=== PATIENT | male | born 1950 | race African-American/Black ===

== ENCOUNTER 2021-08-22 10:24 | Inpatient (IN) | payer OTHER ==
[2021-08-22] VITALS (8 sets, daily range): BP systolic 117–149; BP diastolic 55–74
[~2021-08-22] VITALS: Ht 167.6 cm; Wt 74.0 kg
[2021-08-22 11:59] LABS: HEMOGLOBIN 10.3 g/dl (14.0-18.0); IMMATURE GRANULOCYTES 0.3 % (0.0-5.0); MEAN CELL VOLUME 60.5 fL CALC (80.0-100.0); MEAN CORPUSCULAR HGB 18.3 pG CALC (26.0-32.0); MEAN CORPUSCULAR HGB CONC 30.3 g/dL CAL (32.0-36.0); NEUT# 12.46 thou/uL (1.82-7.42); RED BLOOD COUNT 5.62 mill/uL (4.70-6.10); RED CELL DISTRI WIDTH 14.6 % (11.5-15.5)
[2021-08-22 12:19] LABS: ALBUMIN 3.2 g/dL (3.2-5.0); ALKALINE PHOSPHATASE 168 u/l (38-126); ANION GAP 12 (6-22 (CALC)); BILIRUBIN, TOTAL 1.5 mg/dL (0.0-1.4); BUN 10 mg/dL (8-23); BUN/CREATININE RATIO 15 (12-20 (CALC)); CARBON DIOXIDE 27 mmol/l (22-30); CHLORIDE 94 mmol/l (95-108); CREATININE 0.7 mg/dL (0.7-1.3); GFR > 60 ML/MIN (>=60 (CALC)); GFR FOR AFR.AMER. > 60 ML/MIN (>=60 (CALC)); POTASSIUM 3.4 mmol/l (3.5-5.1); SGOT/AST 65 u/l (19-48); SODIUM 130 mmol/l (137-146); TOTAL PROTEIN 6.1 g/dL (6.3-8.2)
[2021-08-22] MEDS ORDERED: AMLODIPINE BESY10 MG PO (13:37)
[2021-08-22] MEDS ORDERED: ATORVASTATIN CA40 MG PO (13:38)
[2021-08-22] MEDS ORDERED: ASPIRIN81 MG PO (13:38)
[2021-08-22] MEDS ORDERED: GLIPIZIDE ER5 MG PO (13:39)
[2021-08-22] MEDS ORDERED: CEFTRIAX/DEX1 GM IV (13:39)
[2021-08-22] MEDS ORDERED: LATANOPROST0.005 % OU (13:40)
[2021-08-22] MEDS ORDERED: METFORMIN HCL500 M2 PO (13:41)
[2021-08-22] MEDS ORDERED: MAGNESIUM OXID400 M2 (13:41)
[2021-08-22] MEDS ORDERED: METOPROLOL100 M1 PO (13:43)
[2021-08-22] MEDS ORDERED: MYCOPHENOLIC A360 MG (13:44)
[2021-08-22] MEDS ORDERED: NOVOLIN N100 UNIT (13:45)
[2021-08-22] MEDS ORDERED: PROGRAF1 MG PO (13:46)
[2021-08-22] MEDS ORDERED: PROTONIX20 M1 PO (13:46)
[2021-08-22] MEDS ORDERED: CELLCEPT500 MG PO (17:09)
[2021-08-22] MEDS ORDERED: PROGRAF1 M1 PO ×2 (17:09→17:15)
[2021-08-23 00:50] VITALS: BP 123/62
[2021-08-23 04:34] VITALS: BP 129/69
[2021-08-23 06:01] LABS: HEMATOCRIT 30.2 % (39.0-50.0); HEMOGLOBIN 9.2 g/dl (14.0-18.0); MEAN CORPUSCULAR HGB 18.6 pG CALC (26.0-32.0); MEAN CORPUSCULAR HGB CONC 30.5 g/dL CAL (32.0-36.0); RED BLOOD COUNT 4.95 mill/uL (4.70-6.10); RED CELL DISTRI WIDTH 14.5 % (11.5-15.5)
[2021-08-23 06:17] LABS: ANION GAP 11 (6-22 (CALC)); BUN 9 mg/dL (8-23); BUN/CREATININE RATIO 13 (12-20 (CALC)); CARBON DIOXIDE 24 mmol/l (22-30); CHLORIDE 100 mmol/l (95-108); CREATININE 0.7 mg/dL (0.7-1.3); GFR > 60 ML/MIN (>=60 (CALC)); GFR FOR AFR.AMER. > 60 ML/MIN (>=60 (CALC)); MAGNESIUM 1.3 mg/dL (1.6-2.3); POTASSIUM 3.5 mmol/l (3.5-5.1); SODIUM 131 mmol/l (137-146)
[2021-08-23 08:05] VITALS: BP 135/67
[2021-08-23 16:10] VITALS: BP 118/57
[2021-08-23 19:00] VITALS: BP 119/64
[2021-08-24 04:00] VITALS: BP 131/68
[2021-08-24 05:42] LABS: HEMATOCRIT 28.6 % (39.0-50.0); HEMOGLOBIN 8.6 g/dl (14.0-18.0); MEAN CELL VOLUME 61.2 fL CALC (80.0-100.0); MEAN CORPUSCULAR HGB 18.4 pG CALC (26.0-32.0); MEAN CORPUSCULAR HGB CONC 30.1 g/dL CAL (32.0-36.0); RED BLOOD COUNT 4.67 mill/uL (4.70-6.10); RED CELL DISTRI WIDTH 14.5 % (11.5-15.5)
[2021-08-24 05:53] LABS: ANION GAP 9 (6-22 (CALC)); BUN 10 mg/dL (8-23); BUN/CREATININE RATIO 16 (12-20 (CALC)); CARBON DIOXIDE 25 mmol/l (22-30); CHLORIDE 105 mmol/l (95-108); CREATININE 0.6 mg/dL (0.7-1.3); GFR > 60 ML/MIN (>=60 (CALC)); GFR FOR AFR.AMER. > 60 ML/MIN (>=60 (CALC)); MAGNESIUM 1.6 mg/dL (1.6-2.3); POTASSIUM 3.8 mmol/l (3.5-5.1); SODIUM 136 mmol/l (137-146)
[2021-08-24 08:54] VITALS: BP 144/77
[2021-08-24 11:00] VITALS: BP 131/71
[2021-08-24 16:00] VITALS: BP 118/60
[2021-08-24 16:28] VITALS: BP 131/71
[2021-08-24 19:00] VITALS: BP 142/69
[2021-08-25] VITALS (7 sets, daily range): BP systolic 138–147; BP diastolic 68–82
[2021-08-25 06:05] LABS: HEMATOCRIT 28.5 % (39.0-50.0); HEMOGLOBIN 8.8 g/dl (14.0-18.0); MEAN CELL VOLUME 60.9 fL CALC (80.0-100.0); MEAN CORPUSCULAR HGB 18.8 pG CALC (26.0-32.0); MEAN CORPUSCULAR HGB CONC 30.9 g/dL CAL (32.0-36.0); RED BLOOD COUNT 4.68 mill/uL (4.70-6.10); RED CELL DISTRI WIDTH 14.7 % (11.5-15.5)
[2021-08-25 06:17] LABS: ANION GAP 10 (6-22 (CALC)); BUN 7 mg/dL (8-23); BUN/CREATININE RATIO 12 (12-20 (CALC)); CARBON DIOXIDE 25 mmol/l (22-30); CHLORIDE 107 mmol/l (95-108); CREATININE 0.6 mg/dL (0.7-1.3); GFR > 60 ML/MIN (>=60 (CALC)); GFR FOR AFR.AMER. > 60 ML/MIN (>=60 (CALC)); POTASSIUM 3.8 mmol/l (3.5-5.1); SODIUM 138 mmol/l (137-146)
[2021-08-26] VITALS: BP 148/79
[2021-08-26 04:00] VITALS: BP 145/79
[2021-08-26 06:02] LABS: HEMATOCRIT 29.9 % (39.0-50.0); HEMOGLOBIN 9.1 g/dl (14.0-18.0); MEAN CELL VOLUME 60.9 fL CALC (80.0-100.0); MEAN CORPUSCULAR HGB 18.5 pG CALC (26.0-32.0); MEAN CORPUSCULAR HGB CONC 30.4 g/dL CAL (32.0-36.0); RED BLOOD COUNT 4.91 mill/uL (4.70-6.10)
[2021-08-26 06:20] LABS: ANION GAP 9 (6-22 (CALC)); BUN 9 mg/dL (8-23); BUN/CREATININE RATIO 16 (12-20 (CALC)); CARBON DIOXIDE 26 mmol/l (22-30); CHLORIDE 105 mmol/l (95-108); CREATININE 0.6 mg/dL (0.7-1.3); GFR > 60 ML/MIN (>=60 (CALC)); GFR FOR AFR.AMER. > 60 ML/MIN (>=60 (CALC)); MAGNESIUM 1.5 mg/dL (1.6-2.3); POTASSIUM 4.2 mmol/l (3.5-5.1); SODIUM 136 mmol/l (137-146)
[2021-08-26 08:00] VITALS: BP 146/78
[2021-08-26 12:14] VITALS: BP 127/64
[2021-08-26 17:35] VITALS: BP 134/66
[2021-08-26 19:05] VITALS: BP 135/69
[2021-08-27] VITALS: BP 118/57
[2021-08-27 04:13] VITALS: BP 150/77
[2021-08-27 05:29] LABS: HEMATOCRIT 28.6 % (39.0-50.0); HEMOGLOBIN 8.7 g/dl (14.0-18.0); MEAN CELL VOLUME 60.7 fL CALC (80.0-100.0); MEAN CORPUSCULAR HGB 18.5 pG CALC (26.0-32.0); MEAN CORPUSCULAR HGB CONC 30.4 g/dL CAL (32.0-36.0); RED BLOOD COUNT 4.71 mill/uL (4.70-6.10)
[2021-08-27 05:36] LABS: ANION GAP 10 (6-22 (CALC)); BUN 13 mg/dL (8-23); BUN/CREATININE RATIO 18 (12-20 (CALC)); CARBON DIOXIDE 24 mmol/l (22-30); CHLORIDE 107 mmol/l (95-108); CREATININE 0.7 mg/dL (0.7-1.3); GFR > 60 ML/MIN (>=60 (CALC)); GFR FOR AFR.AMER. > 60 ML/MIN (>=60 (CALC)); MAGNESIUM 1.4 mg/dL (1.6-2.3); POTASSIUM 4.3 mmol/l (3.5-5.1); SODIUM 137 mmol/l (137-146)
[2021-08-27 07:45] VITALS: BP 137/69
[2021-08-27 11:13] VITALS: BP 139/74
[2021-08-27 15:06] VITALS: BP 130/65
[2021-08-27 20:05] VITALS: BP 127/65
[2021-08-28 05:16] VITALS: BP 159/73
[2021-08-28 05:54] LABS: HEMATOCRIT 28.2 % (39.0-50.0); HEMOGLOBIN 8.5 g/dl (14.0-18.0); MEAN CELL VOLUME 61.3 fL CALC (80.0-100.0); MEAN CORPUSCULAR HGB 18.5 pG CALC (26.0-32.0); MEAN CORPUSCULAR HGB CONC 30.1 g/dL CAL (32.0-36.0); RED BLOOD COUNT 4.6 mill/uL (4.70-6.10); RED CELL DISTRI WIDTH 15.5 % (11.5-15.5)
[2021-08-28 05:55] LABS: ANION GAP 9 (6-22 (CALC)); BUN 12 mg/dL (8-23); BUN/CREATININE RATIO 18 (12-20 (CALC)); CARBON DIOXIDE 24 mmol/l (22-30); CHLORIDE 110 mmol/l (95-108); CREATININE 0.6 mg/dL (0.7-1.3); GFR > 60 ML/MIN (>=60 (CALC)); GFR FOR AFR.AMER. > 60 ML/MIN (>=60 (CALC)); MAGNESIUM 1.5 mg/dL (1.6-2.3); SODIUM 139 mmol/l (137-146)
[2021-08-28 07:56] VITALS: BP 139/71
[2021-08-28 16:29] VITALS: BP 139/72
[2021-08-28 19:00] VITALS: BP 125/67
[2021-08-29 04:00] VITALS: BP 158/82
[2021-08-29 06:25] LABS: HEMATOCRIT 28.5 % (39.0-50.0); HEMOGLOBIN 8.7 g/dl (14.0-18.0); MEAN CELL VOLUME 61.2 fL CALC (80.0-100.0); MEAN CORPUSCULAR HGB 18.7 pG CALC (26.0-32.0); MEAN CORPUSCULAR HGB CONC 30.5 g/dL CAL (32.0-36.0); RED BLOOD COUNT 4.66 mill/uL (4.70-6.10); RED CELL DISTRI WIDTH 15.8 % (11.5-15.5)
[2021-08-29 06:26] LABS: ANION GAP 11 (6-22 (CALC)); BUN 11 mg/dL (8-23); BUN/CREATININE RATIO 15 (12-20 (CALC)); CARBON DIOXIDE 24 mmol/l (22-30); CHLORIDE 107 mmol/l (95-108); CREATININE 0.7 mg/dL (0.7-1.3); GFR > 60 ML/MIN (>=60 (CALC)); GFR FOR AFR.AMER. > 60 ML/MIN (>=60 (CALC)); MAGNESIUM 1.4 mg/dL (1.6-2.3); POTASSIUM 4.4 mmol/l (3.5-5.1); SODIUM 137 mmol/l (137-146)
[2021-08-29 08:29] VITALS: BP 132/65
[2021-08-29 10:34] VITALS: BP 125/67
[2021-08-29 15:03] VITALS: BP 102/57
[2021-08-29] MEDS ORDERED: METFORMIN HYD1000 MG PO (15:19)
[2021-08-29] MEDS ORDERED: TRAMADOL HCL50 MG PO (15:19)
[2021-08-29] MEDS ORDERED: KEFLEX500 MG PO (15:19)
[2021-08-29] MEDS ORDERED: LEVEMIR100 UNIT SC (15:19)
== END 2021-08-29 16:27 | DRG 570 ==
LOC: ED 10:24 → ED-I 13:40 → ED 13:49 → MS2 13:50
PROVIDERS: Emergency Medicine; Nurse Practitioner; ADMIT Hospitalist; ATTEND Hospitalist
PROC: 0JB50ZZ Excision of Left Neck Subcutaneous Tissue and Fascia, Open Approach (ICD-10-PCS; principal; 2021-08-22)
PROC: 0JB40ZZ Excision of Right Neck Subcutaneous Tissue and Fascia, Open Approach (ICD-10-PCS; 2021-08-22)
PROC: 2W12X6Z Compression of Neck using Pressure Dressing (ICD-10-PCS; 2021-08-24)
DX: L02.11 Cutaneous abscess of neck (principal); U07.1 COVID-19; L02.811 Cutaneous abscess of head [any part, except face]; Z94.0 Kidney transplant status; L02.415 Cutaneous abscess of right lower limb; J10.1 Influenza due to other identified influenza virus with other respiratory manifestations; E11.65 Type 2 diabetes mellitus with hyperglycemia; I10 Essential (primary) hypertension; I25.10 Atherosclerotic heart disease of native coronary artery without angina pectoris; E78.5 Hyperlipidemia, unspecified; K21.9 Gastro-esophageal reflux disease without esophagitis; H40.9 Unspecified glaucoma; B95.61 Methicillin susceptible Staphylococcus aureus infection as the cause of diseases classified elsewhere; Z79.84 Long term (current) use of oral hypoglycemic drugs; Z79.4 Long term (current) use of insulin; Z79.899 Other long term (current) drug therapy
CPT/HCPCS: J3475; Q3014; Q9967

== ENCOUNTER 2021-08-29 21:43 | Emergency (ER) | payer OTHER ==
[~2021-08-29] VITALS: Ht 167.6 cm; Wt 76.0 kg
[~2021-08-29 21:43] MED LIST: AMLODIPINE BESY10 MG PO; ASPIRIN81 MG PO; ATORVASTATIN CA40 MG PO; CEFTRIAX/DEX1 GM IV; CELLCEPT500 MG PO; GLIPIZIDE ER5 MG PO; KEFLEX500 MG PO; LATANOPROST0.005 % OU; LEVEMIR100 UNIT SC; MAGNESIUM OXID400 M2; METFORMIN HCL500 M2 PO; METFORMIN HYD1000 MG PO; METOPROLOL100 M1 PO; MYCOPHENOLIC A360 MG; NOVOLIN N100 UNIT; PROGRAF1 M1 PO; PROGRAF1 MG PO; PROTONIX20 M1 PO; TRAMADOL HCL50 MG PO
[2021-08-29 22:30] VITALS: BP 142/70
== END 2021-08-29 23:17 | DRG 921 ==
LOC: ED 21:43
DX: L76.21 Postprocedural hemorrhage of skin and subcutaneous tissue following a dermatologic procedure (principal); I10 Essential (primary) hypertension; E11.9 Type 2 diabetes mellitus without complications; Y83.8 Other surgical procedures as the cause of abnormal reaction of the patient, or of later complication, without mention of misadventure at the time of the procedure; Z79.84 Long term (current) use of oral hypoglycemic drugs; Z79.4 Long term (current) use of insulin

== ENCOUNTER 2021-09-07 16:29 | Emergency (ER) | payer OTHER ==
[~2021-09-07] VITALS: Ht 167.6 cm; Wt 65.0 kg
[2021-09-07 18:49] VITALS: BP 142/74
== END 2021-09-07 19:35 | disposition home or self-care (01) | DRG 951 ==
LOC: ED 16:29
DX: Z48.01 Encounter for change or removal of surgical wound dressing (principal); Z94.0 Kidney transplant status; I10 Essential (primary) hypertension; E11.9 Type 2 diabetes mellitus without complications; Z79.84 Long term (current) use of oral hypoglycemic drugs; Z79.4 Long term (current) use of insulin